=== PATIENT | male | born 1990 | race Caucasian/White ===

== ENCOUNTER 2025-06-09 19:57 | Emergency (ER) | payer SELFPAY ==
[2025-06-09 20:17] LABS: #Basophils 0.06 10x3/uL (0.0-0.2); #Eosinophils 0.26 10x3/uL (0.0-0.7); #Monocytes 0.68 10x3/uL (0.11-0.59); #Neutrophils 6.61 10x3/uL (1.40-6.50); %Basophils 0.6 % (0.0-1.0); %Eosinophils 2.5 % (0.0-10.0); %Lymphocytes 28.0 % (21.0-51.0); %Monocytes 6.4 % (0.0-10.0); %Neutrophils 62.4 % (42.0-75.0); Hematocrit 47.0 % (42.0-52.0); Hemoglobin 15.2 g/dL (14.0-18.0); Mean Corpuscular Hemoglobin 28.5 pg (27.0-31.0); Mean Corpuscular Volume 88.2 fL (78.0-98.0); Platelet Count 276 10x3/uL (130-400); Red Blood Cell (RBC) Count 5.33 mill/uL (4.70-6.10); White Blood Cell (WBC) Count 10.58 10x3/uL (4.8-10.8)
[2025-06-09 20:39] LABS: ALT (SGPT) 94 U/L (Less than 45); AST (SGOT) 44 U/L (11-34); Albumin 4.2 g/dL (3.1-4.5); Alkaline Phosphatase 102 U/L (40-110); Anion Gap 14 mmol/L (10-20); BUN (Urea Nitrogen) 13 mg/dL (8.9-20.6); Bilirubin, Total 0.3 mg/dL (0.3-1.2); Calc. Creatinine Clearance 0 mL/min (70-130); Calcium 9.2 mg/dL (7.8-10.44); Carbon Dioxide 23 mmol/L (22-29); Chloride 107 mmol/L (98-107); Globulin 3.1 g/dL (2.4-3.5); Glucose 191 mg/dL (70-105); Potassium 3.4 mmol/L (3.5-5.1); Sodium 141 mmol/L (136-145)
== END 2025-06-09 21:23 | disposition home or self-care (01) ==
LOC: ERS 19:57
DX: F41.0 Panic disorder [episodic paroxysmal anxiety] (principal); F17.290 Nicotine dependence, other tobacco product, uncomplicated
CPT/HCPCS: 71045; 80053; 84484; 85025; 93005; 96374; J2060

== ENCOUNTER 2025-06-16 15:42 | Emergency (ER) | payer SELFPAY ==
[~2025-06-16 15:42] MED LIST: Iopamidol-370 76% 500 ML MDV (1 ML CHARGE) ONE
[2025-06-16 16:18] LABS: #Basophils 0.04 10x3/uL (0.0-0.2); #Eosinophils 0.13 10x3/uL (0.0-0.7); #Monocytes 0.57 10x3/uL (0.11-0.59); #Neutrophils 7.93 10x3/uL (1.40-6.50); %Basophils 0.4 % (0.0-1.0); %Eosinophils 1.3 % (0.0-10.0); %Lymphocytes 12.9 % (21.0-51.0); %Monocytes 5.7 % (0.0-10.0); %Neutrophils 79.5 % (42.0-75.0); Hematocrit 46.9 % (42.0-52.0); Hemoglobin 15.2 g/dL (14.0-18.0); Mean Corpuscular Hemoglobin 28.1 pg (27.0-31.0); Mean Corpuscular Volume 86.7 fL (78.0-98.0); Platelet Count 270 10x3/uL (130-400); Red Blood Cell (RBC) Count 5.41 mill/uL (4.70-6.10); White Blood Cell (WBC) Count 9.98 10x3/uL (4.8-10.8)
[2025-06-16 16:29] LABS: ALT (SGPT) 95 U/L (Less than 45); AST (SGOT) 49 U/L (11-34); Albumin 4.1 g/dL (3.1-4.5); Alkaline Phosphatase 101 U/L (40-110); Anion Gap 16 mmol/L (10-20); BUN (Urea Nitrogen) 15 mg/dL (8.9-20.6); Bilirubin, Total 0.4 mg/dL (0.3-1.2); Calc. Creatinine Clearance 0 mL/min (70-130); Calcium 9.5 mg/dL (7.8-10.44); Carbon Dioxide 23 mmol/L (22-29); Chloride 107 mmol/L (98-107); Globulin 3.4 g/dL (2.4-3.5); Glucose 129 mg/dL (70-105); Potassium 3.9 mmol/L (3.5-5.1); Sodium 142 mmol/L (136-145)
== END 2025-06-16 21:23 | disposition home or self-care (01) ==
LOC: ERS 15:42
DX: R07.9 Chest pain, unspecified (principal); F17.290 Nicotine dependence, other tobacco product, uncomplicated
CPT/HCPCS: 71045; 71275; 80053; 84484; 85025; 85379; 93005; 96374; J2060; Q9967